=== PATIENT | male | born 1945 | race Caucasian/White ===

== ENCOUNTER → 2017-05-11 | Outpatient (CLI) | payer OTHER, MEDICARE ==
[~2017-05-11] VITALS: Ht 193 cm; Wt 155.0 kg
[~2017-05-11] MED LIST: ADVAIR 250/501 DISK IH; ALTACE5 MG PO; Acyclovir PO; BYSTOLIC10 MG PO; CALCIUM CIT-VI1 EACH PO; COREG6.25 M1 PO; Citracal Maximum (Ca PO; Feosol PO; Flovent 220 mcg IH; LOVENOX40 MG/0.4 SC; OMEPRAZOLE20 MG PO; Omega III EPA + DHA PO; PROAIR HFA8.5 GM IH; PriLOSEC PO; Proventil,Ventolin H IH; SYMBICORT60 INHALAT IH; Zocor PO; oxyCODONE PO
[2017-05-11 08:12] VITALS: BP 130/67
== END | disposition home or self-care (01) ==
LOC: IVINF 07:54
DX: M81.0 Age-related osteoporosis without current pathological fracture (principal)
CPT/HCPCS: 96365; J3489